=== PATIENT | male | born 1960 | race Caucasian/White ===

== ENCOUNTER 2020-02-07 11:35 | Emergency (ER) | payer MEDICARE, MEDICAID ==
--- NOTE | 2020-02-07 11:54 | EDM.PDOC ---
ED HPI GENERAL MEDICAL PROBLEM - General Chief Complaint: General Stated Complaint: Sent by her care home due to decreased lethargy questionable fever questionable aspiration pneumonia Time Seen by Provider: 02/07/20 11:35 Source of Information: Reports: EMS, Alf Records History Limitations: Reports: Physical Impairment - History of Present Illness INITIAL COMMENTS - FREE TEXT/NARRATIVE: Patient has a history of CVA and is verbal answers yes or no to some questions but is not able to give a full history he was sent over from the care home secondary to fever 100.3 today and questionable aspiration pneumonia since last after vomiting x1 patient does have a history of multiple episodes of aspiration pneumonia. They say today that he has been not acting like himself with more lethargy Duration: Day(s): Associated Symptoms: Reports: No Other Symptoms, Cough - Related Data Allergies Allergy/AdvReac Type Severity Reaction Status Date / Time No Known Allergies Allergy Verified 02/07/20 11:54 Home Meds: Home Meds Amantadine [Symmetrel] 100 mg PO BID 02/07/20 [History] Ascorbic Acid 500 mg PO BID 02/07/20 [History] Bisacodyl [Laxative Suppository] 10 mg RC ASDIRECTED PRN 02/07/20 [History] Cholecalciferol (Vitamin D3) [Vitamin D3] 5,000 unit PO DAILY 02/07/20 [History] Divalproex Sodium [Depakote] 1,000 mg PO DAILY 02/07/20 [History] Divalproex Sodium [Depakote] 1,500 mg PO DAILY 02/07/20 [History] Docusate Sodium [Colace] 100 mg PO BID 02/07/20 [History] Docusate Sodium/Sennosides [Senna Plus] 1 each PO BID 02/07/20 [History] Escitalopram Oxalate [Lexapro] 20 mg PO DAILY 02/07/20 [History] Levothyroxine Sodium [Synthroid] 75 mcg PO ACBREAKFAST 02/07/20 [History] Mirtazapine [Remeron] 7.5 mg PO BEDTIME 02/07/20 [History] Multivitamin [Multi-Vitamin Daily] 1 each PO DAILY 02/07/20 [History] OLANZapine [ZyPREXA] 10 mg PO DAILY 02/07/20 [History] OLANZapine [ZyPREXA] 20 mg PO DAILY 02/07/20 [History] Phenytoin 200 mg PO SUTUTHSA 02/07/20 [History] Phenytoin Sodium Extended 200 mg PO DAILY 02/07/20 [History] Phenytoin Sodium Extended 300 mg PO MOWEFR 02/07/20 [History] Sodium Chloride 1,000 mg PO TID 02/07/20 [History] Tetrahydrozoline HCl [Visine] 2 drop EYEBOTH QID PRN 02/07/20 [History] Vitamin B Complex/Folic Acid [Vitamin B Complex Tablet] 0.4 mg PO DAILY [History] Warfarin Sodium [Coumadin] 2.5 mg PO SUMOWETHFR02/07/20 [History] Warfarin [Coumadin] 5 mg PO TU 02/07/20 [History] atorvaSTATin Calcium [Lipitor] 20 mg PO DAILY 02/07/20 [History] bisacodyL [Bisacodyl] 5 mg PO ASDIRECTED PRN 02/07/20 [History] lamoTRIgine [Lamictal] 100 mg PO DAILY 02/07/20 [History] levETIRAcetam [Keppra] 2,500 mg PO BID 02/07/20 [History] traZODone HCl [Trazodone HCl] 100 mg PO BEDTIME 02/07/20 [History] ED ROS GENERAL - Review of Systems Review Of Systems: See Below Constitutional: Reports: Fever, Malaise HEENT: Reports: No Symptoms Respiratory: Reports: Cough Cardiovascular: Reports: No Symptoms Endocrine: Reports: No Symptoms GI/Abdominal: Reports: No Symptoms : Reports: No Symptoms Musculoskeletal: Reports: No Symptoms Skin: Reports: No Symptoms Neurological: Reports: No Symptoms Psychiatric: Reports: No Symptoms Hematologic/Lymphatic: Reports: No Symptoms Immunologic: Reports: No Symptoms ED EXAM, GENERAL - Physical Exam Exam: See Below Exam Limited By: No Limitations General Appearance: Alert, Other (Patient is alert will answer yes or no to some questions but looks like he does not feel well he has no signs or symptoms of respiratory distress). No: WD/WN, No Apparent Distress Eye Exam: Bilateral Eye: PERRL Ears: Normal External Exam, Normal Canal, Hearing Grossly Normal, Normal TMs Nose: Normal Inspection, Normal Mucosa, No Blood Throat/Mouth: Normal Inspection, Normal Lips, Normal Teeth, Normal Gums, Normal Oropharynx, Normal Voice, No Airway Compromise, Other (Moist mucous membranes) Head: Atraumatic, Normocephalic Neck: Normal Inspection, Supple, Non-Tender, Full Range of Motion Respiratory/Chest: No Respiratory Distress, Lungs Clear, Normal Breath Sounds, No Accessory Muscle Use, Chest Non-Tender, Other (Mild decreased air movement to lower lobes bilateral) Cardiovascular: Normal Peripheral Pulses, Regular Rate, Rhythm, No Edema, No Gallop, No JVD GI/Abdominal: Normal Bowel Sounds, Soft, Non-Tender, No Organomegaly, No Distention Extremities: Normal Inspection, Normal Range of Motion, Non-Tender, No Pedal Edema, Normal Capillary Refill Neurological: Alert, Other. No: Oriented Skin Exam: Warm, Dry, Intact, Normal Color, No Rash Course - Vital Signs Text/Narrative:: CBC BMP chest x-ray blood culture x2 Vital signs stable within [place] [id number] All other labs within normal limits Chest x-ray mild right base infiltrate Patient will be given clindamycin 900 mg IV and started on clindamycin 300 p.o. q 8 hrs x 10 days and return to the care home follow-up with his primary care provider Last Recorded V/S: Last Vital Signs Temp 36.1 C 02/07/20 11:35 Pulse 88 02/07/20 11:35 Resp 16 02/07/20 11:35 BP 111/72 02/07/20 11:35 Pulse Ox 97 02/07/20 11:35 - Orders/Labs/Meds Orders: Active Orders 24 hr Category Date Time Status CULTURE BLOOD [BC] Stat Lab 02/07/20 11:47 Received Clindamycin Phosphate [Cleocin] 900 mg Med 02/07/20 12:57 Active Sodium Chloride 0.9% [Normal Saline] 100 ml IV STAT Medication Orders Clindamycin Phosphate 900 mg/ (Sodium Chloride) 106 mls @ 200 mls/hr IV STAT ONE Stop: 02/07/20 13:28 Labs: Laboratory Tests 02/07/20 02/07/20 Range/Units 11:47 11:47 WBC 13.3 H (4.0-10.0) x10^3/uL RBC 4.13 L (4.5-6.0) x10^6/uL Hgb 13.6 L (14.0-18.0) g/dL Hct 40.2 (40.0-52.0) % MCV 97.3 H (78.0-93.0) fL MCH 32.9 H (26.0-32.0) pg MCHC 33.8 (32.0-36.0) g/dL RDW Coeff of Darin 13.7 (10.0-15.0) % Plt Count 179 (130-400) x10^3/uL Neut % (Auto) 74.0 (50.0-80.0) % Lymph % (Auto) 15.2 L (25.0-50.0) % Wetzel % (Auto) 10.3 (2.0-11.0) % Eos % (Auto) 0.3 (0.0-4.0) % Baso % (Auto) 0.2 (0.2-1.2) % Sodium 142 (136-145) mmol/L Potassium 4.1 (3.5-5.1) mmol/L Chloride 104 (98-107) mmol/L Carbon Dioxide 27 (21-32) mmol/L Anion Gap 15.1 (10-20) mmol/L BUN 11 (7-18) mg/dL Creatinine 0.9 (0.70-1.30) mg/dL Est Cr Clr Drug Dosing TNP Estimated GFR (MDRD) > 60 Glucose 121 H (74-106) mg/dL Calcium 8.8 (8.5-10.1) mg/dL Meds: Medications Generic Name Dose Route Start Last Admin Trade Name Freq PRN Reason Stop Dose Admin Clindamycin Phosphate 900 mg/ 106 mls @ 200 mls/hr 02/07/20 12:57 Sodium Chloride IV 02/07/20 13:28 STAT ONE Discontinued Medications Generic Name Dose Route Start Last Admin Trade Name Freq PRN Reason Stop Dose Admin Levofloxacin/Dextrose 750 mg/ 150 mls @ 100 mls/hr 02/07/20 12:48 Premix IV 02/07/20 14:17 ONETIME ONE Departure - Departure Time of Disposition: 12:50 Disposition: DC/Tfer to SNF 03 Condition: Good Clinical Impression: Pneumonia - Discharge Information Instructions: Community-Acquired Pneumonia, Adult Referrals: Lamine Sheldon MD [Primary Care Provider] - Forms: ED Department Discharge Additional Instructions: Continue clindamycin 300 mg 1 p.o. every 8 hours x10 days Continue to give nebulizer treatments as needed continue Tylenol treatment for the next 24 to 48 hours as needed Follow-up with primary care provider in the next 24 to 48 hours Return to the emergency room if anything gets worse or changes Sepsis Event Note - Focused Exam Vital Signs: Vital Signs Temp Pulse Resp BP Pulse Ox 02/07/20 11:35 36.1 C 88 16 111/72 97 Date Exam was Performed: 02/07/20 Time Exam was Performed: 13:00 - Problem List & Annotations (1) Pneumonia SNOMED Code(s): 830649778 Code(s): J18.9 - PNEUMONIA, UNSPECIFIED ORGANISM Status: Acute Current Visit: Yes - My Orders Last 24 Hours: My Active Orders 02/07/20 11:47 CULTURE BLOOD [BC] Stat 02/07/20 12:57 Clindamycin Phosphate [Cleocin] 900 mg Sodium Chloride 0.9% [Normal Saline] 100 ml IV STAT - Assessment/Plan Last 24 Hours: My Active Orders 02/07/20 11:47 CULTURE BLOOD [BC] Stat 02/07/20 12:57 Clindamycin Phosphate [Cleocin] 900 mg Sodium Chloride 0.9% [Normal Saline] 100 ml IV STAT
[2020-02-07 12:08] LABS: ANION GAP 15.1 mmol/L (10-20); CHLORIDE,CL 104 mmol/L (98-107); SODIUM,NA 142 mmol/L (136-145)
[2020-02-07 12:18] VITALS: BP 111/72; PULSE 88
--- NOTE | 2020-02-07 12:21 | CR ---
[id number] RAD/RAD Chest PA or AP 1V EXAM: FRONTAL CHEST INDICATION: Fever with possible aspiration. COMPARISON: None. DISCUSSION: There is mild elevation of the right hemidiaphragm. Mild linear atelectasis or scarring the lung bases and probable early right base infiltrates. Normal heart size. IMPRESSION: 1. Mild right base infiltrates. Alcon Rojas MD 02/07/20 2053 Thank you for allowing us to participate in the care of your patient.
[2020-02-07] MEDS ORDERED: Levofloxacin/Dextrose 5%-Water 750 MG in Premix Bag 1 BAG IV ONE (12:48)
[2020-02-07] MEDS: Clindamycin Phosphate 900 MG in Sodium Chloride 0.9% 100 ML IV ONE (13:04)
== END 2020-02-07 13:40 ==
LOC: VM.ED 11:35
DX: J18.9 Pneumonia, unspecified organism (principal); Z79.899 Other long term (current) drug therapy; Z79.01 Long term (current) use of anticoagulants; Z86.73 Personal history of transient ischemic attack (TIA), and cerebral infarction without residual deficits
CPT/HCPCS: 71045; 80048; 85025; 87040; 96365; 99283-GF; 99285-25; J3490; J7050

== ENCOUNTER 2022-01-08 00:49 | Emergency (ER) | payer MEDICARE, MEDICAID ==
[2022-01-08] MEDS: Sodium Chloride 0.9% 1,000 ML IV ONE ×2 (01:05→02:22)
[2022-01-08] MEDS ORDERED: cefTRIAXone 1 GM Vial IVPUSH ONE (01:26)
[2022-01-08] MEDS ORDERED: Levalbuterol HCl 1.25 MG/0.5 ML Neb NEB ONE (01:30)
[2022-01-08 01:42] LABS: CHLORIDE,CL 100 mmol/L (98-107); SODIUM,NA 138 mmol/L (136-145)
[2022-01-08 01:45] LABS: ANION GAP 15.9 mmol/L (5-15)
[2022-01-08] MEDS: Ondansetron 4 MG/2 ML SDV IVPUSH ONE ×2 (01:45→04:18)
[2022-01-08 02:11] LABS: CORONAVIRUS COVID-19 NAA NEGATIVE (NEGATIVE)
[2022-01-08] MEDS ORDERED: Clindamycin Phosphate in D5W 600 MG in Premix Bag 1 BAG IV ONE ×2 (02:11)
[2022-01-08] MEDS ORDERED: Iopamidol 612 MG/ML 100 ML Bottle IVPUSH ONE (02:28)
[2022-01-08] MEDS ORDERED: Ondansetron 8 MG in Sodium Chloride 0.9% 100 ML IV ONE (04:02)
[2022-01-08] MEDS ORDERED: Morphine 4 MG/ML Syringe IVPUSH ONE (04:02)
== END 2022-01-08 05:00 | disposition short-term general hospital (02) ==
LOC: VM.ED 00:49
DX: A41.9 Sepsis, unspecified organism (principal); R06.03 Acute respiratory distress; R00.0 Tachycardia, unspecified; K56.609 Unspecified intestinal obstruction, unspecified as to partial versus complete obstruction; I48.91 Unspecified atrial fibrillation; E03.9 Hypothyroidism, unspecified; Z86.73 Personal history of transient ischemic attack (TIA), and cerebral infarction without residual deficits; Z79.899 Other long term (current) drug therapy; Z20.822 Contact with and (suspected) exposure to COVID-19
CPT/HCPCS: 0240U; 36415; 43752; 51702; 71045; 74019; 74177; 80048; 81001; 82271; 83605; 85025; 85610; 87040; 94640; 94760; 96365; 96375; 96376; 99284; 99285-25; J0696; J2270; J2405; J3490; J7030; Q9967